=== PATIENT | male | born 1990 | race Hispanic/Latino ===

== ENCOUNTER 2017-10-30 18:00 | Emergency (ER) | payer OTHER ==
[~2017-10-30] VITALS: Ht 172.7 cm; Wt 129.3 kg
[2017-10-30 18:36] VITALS: BP 109/73
--- NOTE | 2017-10-30 18:57 | ER.PDOC ---
General Chief Complaint: General Complaint Stated Complaint: VOMITING, FATIGUE, TUNNEL VISION TRAVEL OUT OF US: Yes Time seen by MD: 18:49 Source: patient Exam Limitations: no limitations History of Present Illness Initial Comments 26 yo M no reported PMH presents c/o N/V and fatigue that have resolved. Patient states he was concerned that he may have been exposed to a co-worker that was recently diagnosed with viral meningitis. Denies headache, fever, chills, myalgia or photophobia. Patient clinically sober but does endorse a history of EtOH and marijuana use today prior to ED arrival. Severity: moderate Allergies: Coded Allergies: No Known Allergies (Unverified , 10/30/17) Home Meds No Active Prescriptions or Reported Meds Past Medical History Medical History: no pertinent history Surgical History: appendectomy, other Family History Significant Family History: no pertinent family hx Social History Smoking: cigarettes Alcohol Use: occassionally Drug Use: marijuana Reviewed Nursing Reviewed: Vital Signs, Abn. Noted, Nursing Assessment Review of Systems Constitutional: no symptoms reported EENTM: no symptoms reported Respiratory: no symptoms reported Cardiovascular: no symptoms reported Gastrointestinal: no symptoms reported Genitourinary: no symptoms reported Musculoskeletal: no symptoms reported Skin: no symptoms reported Psychiatric/Neurological: no symptoms reported Hematologic/Lymphatic: no symptoms reported Immunological/Allergic: no symptoms reported All Other Systems: Reviewed and Negative Physical Exam General Appearance: No Apparent Distress, WD/WN EENT: eyes nml inspection, nml ENT inspection Neck: Non-Tender, Full Range of Motion, Supple, Other (no meningismus) Respiratory: chest non-tender, lungs clear CVS: reg rate & rhythm, no murmur, no gallop, pulses nml, nml capillary refill Gastrointestinal: Normal Bowel Sounds, No Organomegaly Extremities: Normal Range of Motion, Non-Tender, Normal Inspection, No Pedal Edema 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 Scripts No Active Prescriptions or Reported Meds Duration or Time Spent with Pa: 25 NICO DRAKE MD Oct 30, 2017 18:57
[2017-10-30 19:13] VITALS: BP 109/73
== END 2017-10-30 19:12 | disposition home or self-care (01) ==
LOC: ER 18:00
DX: Z71.1 Person with feared health complaint in whom no diagnosis is made (principal); F17.210 Nicotine dependence, cigarettes, uncomplicated; F12.10 Cannabis abuse, uncomplicated; F10.10 Alcohol abuse, uncomplicated; Z90.49 Acquired absence of other specified parts of digestive tract
CPT/HCPCS: 99281